=== PATIENT | female | born 1930 | race Caucasian/White ===

== ENCOUNTER 2019-02-03 23:47 | Inpatient (IN) | payer MEDICARE ==
[~2019-02-03] VITALS: Ht 152.4 cm; Wt 49.9 kg
--- NOTE | 2019-02-04 | NUR ---
PT BIBS. C/O "MY MOTHER NEEDS A PSYCH EVALUATION. MORE AGGRESSIVE" -SOB NOTED. PT VSS AT THIS TIME
[2019-02-04 00:31] LABS: BASOPHILS # (AUTO) 0.1 /CMM (0.0-0.2); BASOPHILS % (AUTO) 0.8 % (0.0-2.0); EOSINOPHILS % (AUTO) 0.6 % (0.0-6.0); HEMATOCRIT 35 % (33-45); HEMOGLOBIN 11.5 g/dL (11.5-14.8); LYMPHOCYTES % (AUTO) 14.5 % (20.0-44.0); MEAN CORPUSCULAR HGB CONC 33 g/dl (31.0-36.0); MEAN CORPUSCULAR VOLUME 81 fL (82-100); MONOCYTES # (AUTO) 0.5 /CMM (0.1-1.30); MONOCYTES % (AUTO) 6.4 % (2.0-12.0); NEUTROPHILS # (AUTO) 5.5 /CMM (1.8-8.9); NEUTROPHILS % (AUTO) 77.7 % (43.0-81.0); PLATELET COUNT (AUTO) 385 /CMM (150-450); RED BLOOD CELL COUNT(AUTO) 4.33 MIL/uL (4.0-5.2); WHITE BLOOD COUNT (AUTO) 7.1 K/uL (4.3-11.0)
[2019-02-04 00:50] LABS: CALCIUM, SERUM 9.5 mg/dL (8.5-10.1); CARBON DIOXIDE 22 mmol/L (21-32); CHLORIDE 99 mmol/L (98-107); CREATININE 1.2 mg/dL (0.6-1.3); GLUCOSE 89 mg/dL (74-106); POTASSIUM 3.9 mmol/L (3.5-5.1); SODIUM SERUM 138 mmol/L (136-145); UREA NITROGEN, BLOOD 32 mg/dL (7-18)
[2019-02-04 00:55] LABS: ALANINE AMINOTRANSFERASE 16 U/L (12-78); ALBUMIN 4.3 g/dL (3.4-5.0); ALCOHOL, BLOOD < 3 mg/dL (0-0); ALKALINE PHOSPHATASE 155 U/L (46-116); ASPARTATE AMINOTRANSFERASE 16 U/L (15-37); BILIRUBIN,DIRECT 0.1 mg/dL (0.0-0.2); BILIRUBIN,TOTAL 0.4 mg/dL (0.2-1.0); TOTAL PROTEIN, SERUM 8.1 g/dL (6.4-8.2)
[2019-02-04 00:57] LABS: ACETAMINOPHEN 0 ug/ml (10-30); SALICYLATE 2.6 mg/dL (2.8-20.0)
--- NOTE | 2019-02-04 01:41 | NUR ---
URINE COLLECTED, CALLED LAB FOR CONTINUOUS DRIER OPERATOR
[2019-02-04 01:59] LABS: APPEARANCE,URINE CLEAR (CLEAR); BILIRUBIN,URINE NEGATIVE (NEGATIVE); BLOOD, URINE NEGATIVE Ery/uL (NEGATIVE); COLOR,URINE YELLOW (YELLOW); KETONES,URINE 1+ (NEGATIVE); LEUKOCYTE ESTERASE ,URINE NEGATIVE (NEGATIVE); NITRITE, URINE NEGATIVE (NEGATIVE); PH,URINE 5.5 (5.0-8.0); PROTEIN,URINE TRACE mg/dl (NEGATIVE); UGLUCOSE NEGATIVE (NEGATIVE); UROBILINOGEN,URINE 0.2 EU/dL (0.2)
[2019-02-04 02:13] LABS: BACTERIA,URINE None seen /HPF (None Seen); RBC,URINE 0-2 /HPF (0-2); SQUAMOUS EPITHELIAL CELL,UR Few /HPF (None Seen); WBC,URINE 0-2 /HPF (0-3)
[2019-02-04] MEDS ORDERED: AMLO5TAB9 PO (04:14)
[2019-02-04] MEDS ORDERED: DULO20CA PO (04:14)
[2019-02-04] MEDS ORDERED: PANT40TA2 PO (04:19)
[2019-02-04] MEDS ORDERED: DIAZ5TAB4 PO (04:19)
[2019-02-04] MEDS ORDERED: MAG HYDROX/AL HYDROX/SIMETH 30 ML UDC PO PRN (05:00)
[2019-02-04] MEDS ORDERED: MAGNESIUM HYDROXIDE 30 ML UDC PO PRN (05:00)
[2019-02-04] MEDS ORDERED: LORAZEPAM 0.5 MG TABLET PO PRN (05:00)
[2019-02-04] MEDS ORDERED: BLOOD SUGAR DIAGNOSTIC 1 EACH STRIP IN ONE (05:30)
--- NOTE | 2019-02-04 05:53 | NUR ---
GPS REPLENISHMENT BUYER NOTES: ADMITTED AN 88YO FEMALE FROM HOME, BROUGHT INTO [facility] ER BY THE SON DUE TO INCREASINGLY BECOMING AGGRESSIVE AT HOME. PATIENT THEN PLACED ON 5150 HOLD. PER HOLD, PATIENT WAS HAVING DECREASED MEMORY, INCREASINGLY AGGRESSIVE BEHAVIOR,HITTING HER CAREGIVERS, HAVING INCREASED PARANOIA- THUS THIS ADMISSION. PATIENT WILL BE UNDER THE CARE OF DR. WEAVER AND DR. STEPHANIE MASTERS FOR PSYCH AND MEDICAL RESPECTIVELY. UPON FACE TO FACE ASSESSMENT, PATIENT PRESENTS ALERT AND ORIENTED X1, APPEARS VERY CONFUSED. DISORGANIZED, RESPONDS IN A VERY SARCASTIC WAY WHEN ASKED. SHE EXPRESSED ANGER FOR BEING HERE. REALITY ORIENTATION DONE. BELONGINGS AND CONTRABAND CHECKED. Q15 MIN CHECKS INITIATED. CHANGED PATIENT TO CLEAN GOWN. SKIN AND BODY ASSESSMENT DONE. PICTURES TAKEN AND PLACED IN THE CHART. SAFETY AND FALL PRECAUTIONS OBSERVED. INFORMED PATIENT REGARDING CALL LIGHT USE AND TO ASK FOR HELP ANYTIME. WILL FOLLOW UP MEDICAL DOCTOR FOR MED RECON. WILL CONTINUE TO MONITOR PATIENT FOR MOOD, SAFETY AND BEHAVIOR.
[2019-02-04] MEDS: ACETAMINOPHEN 325 MG TABLET PO PRN ×2 (06:40→21:14)
[2019-02-04 08:00] VITALS: BP 162/81
[2019-02-04] MEDS: hydrALAZINE HCL 25 MG TABLET PO PRN (11:34)
--- NOTE | 2019-02-04 12:35 | NUR ---
SW attempted to contact pt's son, Missael Morocho [[phone]] but no answer; SW left voicemail and will attempt to contact next of kin at a later time.
--- NOTE | 2019-02-04 12:35 | NUR ---
Initial discharge plan: Pt would like to return to her home, located at [address] [place] [id number]; [phone], with different in-home caregivers. Pt is also open living with her brother Nikolas Benton or daughter in law Isidra. Pt is not interested in assisted living placement. SHAHNAZ will plan to discuss placement options with pt, pt family, and MD for discharge planning. SHAHNAZ will continue to work on a safe and proper discharge plan for pt.
--- NOTE | 2019-02-04 15:31 | NUR ---
Group Note: Pt attended group therapy on 02/04/19 at 2:30pm discussing the topic of anger management for when they are in the hospital and for once they are discharged. S: Pt stated, When I get angry I just blow up. I know I should just remove myself from the situation but it is not easy, it is hard, but I want to do better. I want to practice doing better and removing myself from the situation. O: Pt was present during the group session and was engaged. Pt appeared to be in a euthymic mood and presented with a calm affect. Pt maintained appropriate eye contact and had an appropriate tone of voice. A: Pt expressed that when she gets angry she will practice removing herself from the situation until she calms down. Pt will work on managing her anger by talking it out and staying calm when other people upset her. P: Pt will continue milieu treatment and medication stabilization.
[2019-02-04 16:00] VITALS: BP 149/70
--- NOTE | 2019-02-04 16:31 | NUR ---
SHAHNAZ spoke with Missael Morocho [[phone]], pts son, who is in agreement of having pt return to her home with in-home supportive services. Son is already working with [facility] to secure in-home caregivers for when pt is discharged home.
[2019-02-04 20:00] VITALS: BP 148/86
[2019-02-04] MEDS ORDERED: QUETIAPINE FUMARATE 25 MG TABLET PO SCH (22:00)
[2019-02-05] MEDS: ZOLPIDEM TARTRATE 5 MG TABLET PO PRN ×2 (01:47→21:55)
[2019-02-05] MEDS: hydrALAZINE HCL 25 MG TABLET PO PRN (07:38)
[2019-02-05] MEDS: ACETAMINOPHEN 325 MG TABLET PO PRN (07:38)
[2019-02-05 08:00] VITALS: BP 168/98
[2019-02-05] MEDS ORDERED: DULOXETINE HCL 30 MG CAPSULE.DR PO SCH (09:00)
[2019-02-05] MEDS: PANTOPRAZOLE 40 MG TABLET.DR PO SCH (09:06)
[2019-02-05] MEDS: AMLODIPINE BESYLATE 5 MG TABLET PO SCH (09:06)
--- NOTE | 2019-02-05 11:17 | NUR ---
Patti ([phone]), registered nurse advocate, called the SW and stated that the pts son is highly anxious and is considering having the pt transferred to [facility] and that he is uncertain about the treatment that she is receiving. She stated that the pts son is unsure of how to proceed and needs information about the pts hospitalization.
--- NOTE | 2019-02-05 11:19 | NUR ---
SHAHNAZ called Missael Morocho ([phone]), pts son, and left him a voicemail stating that the psychiatrist has been trying to call him to discuss the pts case.
[2019-02-05] MEDS ORDERED: MORPHINE SULFATE INJ 2 MG/ML DISP.SYRIN IV PRN (11:30)
[2019-02-05] MEDS ORDERED: diphenhydrAMINE HCL ELIX 25 MG/10 ML UDC PO PRN (11:30)
--- NOTE | 2019-02-05 14:40 | NUR ---
SHAHNAZ received a call from the pts brother, Nikolas Benton ([phone]), and he was informed that he cannot visit the unit outside of visiting hours due to safety precautions. He stated that he wanted to know who placed the pt on a hold and when she was going to be released. SHAHNAZ stated that the MD spoke to the pts son regarding those details and that he may receive that information from the son.
[2019-02-05 16:00] VITALS: BP 146/85
--- NOTE | 2019-02-05 18:51 | NUR ---
GPS/RN-NOTES PATIENT X3 PCS. OF HEARING AID WAS KEPT IN THE PATIENT'S ( MEDICATION CASSETTE ). WILL ENDORSE TO INCOMING NURSE FOR CONTINUITY OF CARE.
--- NOTE | 2019-02-05 20:00 | NUR ---
GPS-RN PATIENT NOTED WITH BRUISE ON HER RIGHT WRIST, IN PURPLE DISCOLORATION. SKIN INTACT. PHOTO TAKEN AND PLACED IN CHART. WHEN PATIENT ASKED WHAT HAPPENED? PT. STATED "I DON'T KNOW IT JUST POPPED OUT TODAY" PATIENT DENIES PAIN OR DISCOMFORT. HANDLED GENTLY DURING CARE. WILL CONTINUE TO MONITOR FOR FURTHER CHANGES EVERY SHIFT.
[2019-02-05 20:55] VITALS: BP 159/86
[2019-02-05] MEDS: QUETIAPINE FUMARATE 25 MG TABLET PO SCH (21:10)
--- NOTE | 2019-02-06 01:00 | NUR ---
GPS-RN S/P FALL, BED ALARM WENT OFF IMMEDIATELY WENT TO PATIENT'S ROOM AND FOUND PT. IN SITTING POSITION BOTH ARMS SUPPORTING HER UPPER BODY. PER PATIENT SHE BUMPED HER HEAD. HEAD TO TOE ASSESSMENT DONE NOTED WITH BUMPED ON RIGHT TEMPORAL AREA AND C/O PAIN ON RIGHT ARM 11/25. PAIN MEDS GIVEN. VITAL SIGNS BP 167/98, R20, PULSE 101, T97.8 O2 SAT @97%. 0103 - PAGED [employer] AND DR. STEPHANIE MASTERS NOTIFIED OF THE INCIDENT WITH NEW ORDERS TO DO CT SCAN OF THE HEAD WITHOUT CONTRAST, RIGHT SHOULDER X-RAY COMPLETE ORDERS NOTED AND CARRIED OUT. ASKED PATIENT WHAT HAPPENED? PATIENT STATED "I WAS ABOUT TO GET UP TO USE THE BATHROOM" RANGE OF MOTION WITHIN NORMAL LIMITS ABLE TO EXTEND AND FLEX UPPER AND LOWER EXTREMITIES EXCEPT SHE HAS PAIN ON THE RIGHT ARM WHILE RAISING HER RIGHT ARM. NO LOC, NO DIZZINESS, NO BLURRING OF VISION, NO HEADACHE PRIOR TO FALL. PATIENT INSTRUCTED TO USE CALL LOYA WHEN ASSISTANCE IS NEEDED. SAFETY PRECAUTIONS IN PLACE. WILL CONTINUE TO MONITOR Q15MIN ROUNDS FOR SAFETY AND BEHAVIOR. NURSING SUPERVISOR OF INSTRUCTION NOTIFIED. WILL NOTIFY FAMILY IN THE MORNING REGARDING THE INCIDENT. Addendum: 02/06/19 at 0356 by JANICE ABBASI RN ICE PACKED APPLIED TO RIGHT SHOULDER AND RIGHT SIDE OF THE HEAD.
[2019-02-06 01:02] VITALS: BP 167/98
[2019-02-06] MEDS: ACETAMINOPHEN 325 MG TABLET PO PRN ×2 (01:20→08:22)
[2019-02-06] MEDS: hydrALAZINE HCL 25 MG TABLET PO PRN (01:31)
--- NOTE | 2019-02-06 02:56 | NUR ---
GPS-RN 0256 - PAGED [facility] DR. STEPHANIE MASTERS REGARDING XR RIGHT SHOULDER, AWAITING CALL BACK FROM . [phone] - FOLLOWED UP CALL MADE TO [facility] DR. MASTERS RE: XR RIGHT SHOULDER RESULT NO CALL BACK YET.
--- NOTE | 2019-02-06 03:36 | NUR ---
GPS-RN RECEIVED A CALL FROM DR. SANCHEZ INFORMED HIM OF X-RAY AND CT OF THE HEAD FINDINGS. DR. SANCHEZ ORDERED RIGHT ARM SHOULDER SLING, ORTHO CONSULT IN AM WITH ON-CALL DOCTOR AND NORCO 5/325MG PO Q6HRS PRN. ALL ORDERS NOTED AND CARRIED OUT.
[2019-02-06] MEDS: HYDROCODONE/APAP 5/325MG 1 EACH TABLET PO PRN ×2 (03:50→11:02)
--- NOTE | 2019-02-06 06:35 | NUR ---
GPS-RN SPOKE TO PT'S SON EMILIA NIETO AND NOTIFIED REGARDING S/P FALL INCIDENT. Addendum: 02/06/19 at 0647 by SOURAV PETERSEN RN PER SON PATIENT HAS HAD HISTORY OF FALL 4 WEEKS AGO, AND THE SECOND TIME HAPPENED 2 WEEKS AGO AND THAT, SHE COMPLAINED OF PAIN ON HER RIGHT ARM. HE ALSO STATED PATIENT HAD AN X-RAY ON HER RIGHT ARM AT [facility].
[2019-02-06 06:48] VITALS: BP 157/86
[2019-02-06 07:53] LABS: CREATININE 0.9 mg/dL (0.6-1.3); POTASSIUM 3.4 mmol/L (3.5-5.1)
[2019-02-06 07:59] LABS: BASOPHILS % (AUTO) 0.6 % (0.0-2.0); EOSINOPHILS % (AUTO) 1.1 % (0.0-6.0); HEMATOCRIT 34 % (33-45); HEMOGLOBIN 11.1 g/dL (11.5-14.8); LYMPHOCYTES # (AUTO) 1.4 /CMM (0.8-4.8); LYMPHOCYTES % (AUTO) 17.9 % (20.0-44.0); MEAN CORPUSCULAR HGB CONC 33 g/dl (31.0-36.0); MEAN CORPUSCULAR VOLUME 81 fL (82-100); MONOCYTES # (AUTO) 0.7 /CMM (0.1-1.30); MONOCYTES % (AUTO) 8.5 % (2.0-12.0); NEUTROPHILS # (AUTO) 5.6 /CMM (1.8-8.9); NEUTROPHILS % (AUTO) 71.9 % (43.0-81.0); PLATELET COUNT (AUTO) 358 /CMM (150-450); WHITE BLOOD COUNT (AUTO) 7.8 K/uL (4.3-11.0)
[2019-02-06 08:00] VITALS: BP 163/99
[2019-02-06] MEDS: ESCITALOPRAM OXALATE (10 MG) 10 MG TABLET PO SCH (08:22)
[2019-02-06] MEDS: AMLODIPINE BESYLATE 5 MG TABLET PO SCH (08:22)
[2019-02-06] MEDS: PANTOPRAZOLE 40 MG TABLET.DR PO SCH (08:22)
[2019-02-06] MEDS ORDERED: POTASSIUM CHLORIDE 20 MEQ TAB.PRT.SR PO SCH (10:30)
--- NOTE | 2019-02-06 11:03 | NUR ---
GPS/RN-NOTES PATIENT C/O 12/26 RIGHT SHOULDER PAIN. NORCO 5/325MG 1 TAB. P.O GIVEN PRN ORDER. WILL CONT. 1: 1 MONITORING FOR SAFETY AND BEHAVIOR.
--- NOTE | 2019-02-06 12:05 | NUR ---
PSRN-NOTES PATIENT LAYING IN BED SLEEPING EASILY AROUSE,NO ACUTE DISTRESS NOTED. ON 1:1 MONITORING FOR SAFETY AND BEHAVIOR.
[2019-02-06] MEDS: TRAMADOL HCL 50 MG TABLET PO SCH ×2 (14:53→22:15)
[2019-02-06 16:00] VITALS: BP 140/91
--- NOTE | 2019-02-06 16:54 | NUR ---
GPS/RN-NOTES DR. CORREA MADE AWARE OF THE CT OF THE RIGHT SHOULDER RESULTS WITH NNO AT THIS TIME. STATED" CONTINUE ON LETTING THE PATIENT USE THE SLING ON THE SHOULDER".
--- NOTE | 2019-02-06 17:13 | NUR ---
GPS/RN-NOTES PLACE CALL TO DR. BLANCHARD AT [phone] ( ORTHO) VERBALIZED HE WILL COME SEE THE PATIENT IN THE MORNING.
[2019-02-06 20:19] VITALS: BP 159/98
[2019-02-06] MEDS: QUETIAPINE FUMARATE 25 MG TABLET PO SCH (21:37)
[2019-02-07] MEDS: ZOLPIDEM TARTRATE 5 MG TABLET PO PRN (00:36)
[2019-02-07] MEDS: HYDROCODONE/APAP 5/325MG 1 EACH TABLET PO PRN ×3 (02:42→19:38)
[2019-02-07] MEDS: TRAMADOL HCL 50 MG TABLET PO SCH ×3 (06:59→21:42)
--- NOTE | 2019-02-07 07:30 | NUR ---
PT RECEIVED RESTING COMFORTABLY IN BED. NO S/S OR C/O PAIN OR DISTRESS NOTED. SIDE RAILS UP X2, WILL CONTINUE PLAN OF CARE.
[2019-02-07 08:00] VITALS: BP 194/95
[2019-02-07] MEDS: ESCITALOPRAM OXALATE (10 MG) 10 MG TABLET PO SCH (09:00)
[2019-02-07] MEDS: PANTOPRAZOLE 40 MG TABLET.DR PO SCH (09:00)
[2019-02-07] MEDS: AMLODIPINE BESYLATE 5 MG TABLET PO SCH (10:55)
[2019-02-07] MEDS ORDERED: TUBERCULIN,PURIF.PROT.DERIV. 5 TU/0.1 ML VIAL ID ONE (15:30)
[2019-02-07 16:00] VITALS: BP 165/97
--- NOTE | 2019-02-07 16:00 | NUR ---
PT REFUSED SUBQ TB TEST. PT TEACHING PERFORMED TO DISCUSS IMPORTANCE OF PROCEDURE BUT PT CONTINUED TO ADAMANTLY REFUSE. WILL NOTIFY
--- NOTE | 2019-02-07 16:53 | NUR ---
PT REFUSED BLOOD DRAW. PT TEACHING PERFORMED TO EXPLAIN IMPORTANCE OF PROCEDURE BUT PATIENT CONTINUED TO REFUSE. WILL NOTIFY .
--- NOTE | 2019-02-07 20:00 | NUR ---
GPS RN NOTE: PATIENT REFUSED PPD SKIN TEST, SON "BYRON" ALSO REFUSED SKIN TEST FOR HIS MOM AND WANTED A CHEST XRAY INSTEAD PER REQUIREMENT OF THE ACCEPTING PLACE. NOTIFIED EPIC EXCHANGE AND AWAITING FOR THE DOCTOR CALL BACK
--- NOTE | 2019-02-07 20:15 | NUR ---
GPS RN NOTE: RECEIVED NEW ORDER FROM DR. STEPHANIE SANCHEZ OF CHEST XRAY IN AM NOTED AND CARRIED OUT.
[2019-02-07 20:19] VITALS: BP 145/99
[2019-02-07] MEDS: QUETIAPINE FUMARATE 25 MG TABLET PO SCH (21:39)
[2019-02-08] MEDS: HYDROCODONE/APAP 5/325MG 1 EACH TABLET PO PRN ×3 (05:21→17:30)
--- NOTE | 2019-02-08 05:42 | NUR ---
GPS RN NOTE: WEEKLY PICTURES DONE, BUT PATIENT REFUSED TO SHOW HER BACK AREA. EXPLAINED THE RISK AND BENEFITS AND PATIENT STILL REFUSED. WILL ENDORSE TO THE NEXT SHIFT.
[2019-02-08] MEDS: TRAMADOL HCL 50 MG TABLET PO SCH ×3 (06:30→21:27)
[2019-02-08 08:00] VITALS: BP 160/90
[2019-02-08] MEDS: ESCITALOPRAM OXALATE (10 MG) 10 MG TABLET PO SCH (08:30)
[2019-02-08] MEDS: PANTOPRAZOLE 40 MG TABLET.DR PO SCH (08:32)
[2019-02-08] MEDS: AMLODIPINE BESYLATE 5 MG TABLET PO SCH (08:33)
--- NOTE | 2019-02-08 09:44 | NUR ---
RN NOTE: PATIENT C/O 01/26 SHOULDER PAIN, PRN NORCO GIVEN
--- NOTE | 2019-02-08 13:04 | NUR ---
SHAHNAZ called the pts son, Missael ([phone]) to return his voicemail and he stated that he would like the pt to be referred to [facility] in [place]. SHAHNAZ stated that she would facilitate the discharge with the facility.
--- NOTE | 2019-02-08 14:52 | NUR ---
Group Note: SW encouraged pt to attend group therapy on 02/08/19 at 1:30pm discussing support systems when they are in the hospital and for once they are discharged but the pt was unable to attend.
[2019-02-08 16:00] VITALS: BP 134/97
--- NOTE | 2019-02-08 16:07 | NUR ---
SHAHNAZ faxed referral to [facility] [[address] [place] [address]; [phone]] saturnino Eden, seo coordinator, fax number [phone].
[2019-02-08 19:43] VITALS: BP 137/87
[2019-02-08] MEDS: LORAZEPAM 0.5 MG TABLET PO PRN (19:54)
[2019-02-08] MEDS: QUETIAPINE FUMARATE 25 MG TABLET PO SCH (21:26)
[2019-02-08] MEDS: ZOLPIDEM TARTRATE 5 MG TABLET PO PRN (21:26)
[2019-02-09] MEDS: TRAMADOL HCL 50 MG TABLET PO SCH ×3 (06:30→22:26)
--- NOTE | 2019-02-09 06:37 | NUR ---
PATIENT REFUSED 6 AM TRAMADOL PATIENT STATED, I DON'T NEED ANY MEDICATIONS I AM FINE
[2019-02-09 08:00] VITALS: BP 159/99
--- NOTE | 2019-02-09 09:00 | NUR ---
[facility] ASSESSMENT: Bell RN and [employer], memory customer care consultant came on this present day to assess pt for possible admission. Per Bell, she would let SW know later today if pt will be accepted.
[2019-02-09] MEDS: AMLODIPINE BESYLATE 5 MG TABLET PO SCH (09:02)
[2019-02-09] MEDS: PANTOPRAZOLE 40 MG TABLET.DR PO SCH (09:02)
[2019-02-09] MEDS: ESCITALOPRAM OXALATE (10 MG) 10 MG TABLET PO SCH (09:02)
--- NOTE | 2019-02-09 12:53 | NUR ---
SW contacted [facility] [[address] [place] [address]; [phone]] and left a voicemail for Roro, admission coordinator requesting update on pts referral status.
--- NOTE | 2019-02-09 13:44 | NUR ---
SW received a call from Katiana, servicenow administrator developer at [facility] [[address] [place] [address]; [phone]] stating that pt has been accepted to the facility and is waiting for pts son to arrange pts furniture.
--- NOTE | 2019-02-09 13:47 | NUR ---
SW called the pts son, Missael ([phone]) to inform him [facility] has accepted pt and to inform him that psychiatrist has discharge order for tomorrow Friday02/10/19. Son stated that he is currently working on getting pts furniture transferred to [facility] and stated that he might need an extra day to arrange the move. SHAHNAZ stated that she would call him tomorrow morning to confirm discharge.
[2019-02-09 15:50] VITALS: BP 154/69
--- NOTE | 2019-02-09 16:00 | NUR ---
RN NOTE: PATIENT REFUSED 1430 TRAMADOL AND STATED, "NO THANKS, IM DOING OK"
[2019-02-09] MEDS: QUETIAPINE FUMARATE 25 MG TABLET PO SCH (19:56)
[2019-02-09] MEDS: LORAZEPAM 0.5 MG TABLET PO PRN (19:56)
[2019-02-09 20:17] VITALS: BP 160/60
[2019-02-09] MEDS: DONEPEZIL 5 MG TABLET PO SCH (22:00)
[2019-02-09] MEDS: ZOLPIDEM TARTRATE 5 MG TABLET PO PRN (23:00)
[2019-02-10] MEDS: ZOLPIDEM TARTRATE 5 MG TABLET PO PRN (05:41)
[2019-02-10] MEDS: TRAMADOL HCL 50 MG TABLET PO SCH ×3 (06:30→21:31)
--- NOTE | 2019-02-10 07:00 | NUR ---
RN NOTE: PATIENT REFUSED @ 630 AM TRAMADOL AND STATED, "I DON,T HAVE A PAIN"
[2019-02-10 08:00] VITALS: BP 167/76
--- NOTE | 2019-02-10 08:42 | NUR ---
SW called the pts son, Missael ([phone]) to confirm discharge on this present day. Son stated that "most likely" pts room at [facility] will be ready on . Son also requested SW provide him with pts current diagnosis. SW provided him with diagnosis of Unspecified Depression and rule out of Dementia. Pt was upset with diagnosis and stated that he will not approve transfer to another facility until he had clear answers regarding pts Dementia diagnosis. Son questioned why Dementia was ruled out and SW informed him that she was unable to discuss pts diagnosis with him as it was out of her scope of practice. SHAHNAZ informed him that she would have psychiatrist Dr. Luna call him on this present day to discuss pts diagnosis.
[2019-02-10] MEDS: ESCITALOPRAM OXALATE (10 MG) 10 MG TABLET PO SCH (08:47)
[2019-02-10] MEDS: AMLODIPINE BESYLATE 5 MG TABLET PO SCH (08:48)
[2019-02-10] MEDS: PANTOPRAZOLE 40 MG TABLET.DR PO SCH (08:49)
--- NOTE | 2019-02-10 10:23 | NUR ---
PC HEARING NOTIFICATION SHAHNAZ called the pts son, Missael ([phone]) and left a voicemail informing him SW will ask psychiatrist Dr. Luna to call him to discuss his concern with pts diagnosis and also to inform him that pt has a scheduled PC hearing on this present day.
[2019-02-10] MEDS: HYDROCODONE/APAP 5/325MG 1 EACH TABLET PO PRN (10:40)
--- NOTE | 2019-02-10 10:40 | NUR ---
PT C/O PAIN TO RT SHOULDER 01/26 MEDICATED WITH ONE NORCO PRN
--- NOTE | 2019-02-10 10:59 | NUR ---
SW received a call from pts son, Missael ([phone]) stating that he opposes for pt to have a hearing without legal representation on his behalf. SW explained that he cannot oppose to a hearing as it is an LPS requirement and since he is not pts LPS conservator he is unable to make such decision. SW explained that he is able to attend only is pt allows for him to attend and stated that if pt refuses for him to attend he may not attend the hearing as it is her right. SW also informed him that pt has requested not to speak with him and that there is a myla in the nurses station. Son was upset and stated that he is a religious education coordinator and will call [place] [address] to make sure he is granted permission to attend.
--- NOTE | 2019-02-10 12:09 | NUR ---
SHAHNAZ contacted pts son, Missael ([phone]) and left a voicemail informing him that the PC HEARING will be held between [phone]. SHAHNAZ also informed him that Psychiatrist Dr. Luna attempted to call him twice to discuss pts diagnoses and also to discuss pts discharge on this present day.
--- NOTE | 2019-02-10 12:45 | NUR ---
SW received a voicemail from pts son, Missael ([phone]) requesting pt be discharged tomorrow morning to [facility].
--- NOTE | 2019-02-10 13:28 | NUR ---
SHAHNAZ and psychiatrist Dr. Luna spoke with pts son, Missael ([phone]) who agreed to discharging pt tomorrow 02/11/[address] [facility]. Son also stated he will not be attending the PC HEARING as he stated "there is no point in me attending as she is being discharged tomorrow."
[2019-02-10 16:00] VITALS: BP 162/89
[2019-02-10] MEDS: hydrALAZINE HCL 25 MG TABLET PO PRN (16:19)
--- NOTE | 2019-02-10 16:29 | NUR ---
PT B/P 162/89 PRN HYDRALAZINE GIVEN WILL RECHECK B/P
[2019-02-10 19:59] VITALS: BP 149/88
[2019-02-10] MEDS: QUETIAPINE FUMARATE 25 MG TABLET PO SCH (21:12)
[2019-02-10] MEDS: DONEPEZIL 5 MG TABLET PO SCH (21:12)
[2019-02-11] MEDS: HYDROCODONE/APAP 5/325MG 1 EACH TABLET PO PRN (03:20)
[2019-02-11] MEDS: TRAMADOL HCL 50 MG TABLET PO SCH (06:49)
[2019-02-11 08:00] VITALS: BP 161/89
[2019-02-11] MEDS: ESCITALOPRAM OXALATE (10 MG) 10 MG TABLET PO SCH (08:56)
[2019-02-11] MEDS: PANTOPRAZOLE 40 MG TABLET.DR PO SCH (08:56)
[2019-02-11 08:57] VITALS: BP 161/89
[2019-02-11] MEDS: AMLODIPINE BESYLATE 5 MG TABLET PO SCH (08:57)
--- NOTE | 2019-02-11 10:30 | NUR ---
DISCHARGE NOTE: Pt will be discharged at 12:00pm to [facility] [id number] . Pts son Missael [phone] will be picking pt up and transporting to the facility. Pts mood is euthymic with congruent affect. Pt denied visual/auditory hallucinations and denied suicidal/homicidal ideation. Pt will be under the care of Psychiatrist: Dr. Enzo Skaggs Address: [address] [place] [address] and Envelope Sealer: Dr. Ruben Goodman Address: [address] [facility] [address] [address] . The multidisciplinary exit care form was done, printed, signed, and given to the patient.
--- NOTE | 2019-02-11 12:00 | NUR ---
GPS/RN-NOTES PATIENT WAS DISCHARGE TO [facility] TODAY. DR. WEAVER AND DON CURIEL AWARE AND AGREED OF PATIENT DISCHARGE.PATIENT LEFT THE UNIT IN STABLE CONDITION ALERT ORIENTED X2 AMBULATORY WITH ASSIST. PATIENT DID NOT VERBALIZED SI/HI ,DENIES VISUAL/AUDITORY HALLUCINATIONS AT THE TIME OF DISCHARGE.PATIENT WAS SEO ENGINEER BY SON EMILIA VIA PRIVATE CAR. ALL BELONGINGS WAS GIVEN TO THE PATIENT INCLUDING X3 PCS. HEARING AID AND ALSO RX AND DISCHARGE PAPERS .PATIENT WAS WHEELED BY ONE EMT P STAFF IN THE LOBBY FOR SAFETY.
== END 2019-02-11 12:00 | DRG 881 ==
LOC: ER 23:49 → GPS 02-04 04:21
PROVIDERS: ADMIT Psychiatry & Neurology Psychiatry; ATTEND Internal Medicine
DX: F32.9 Major depressive disorder, single episode, unspecified (principal); M80.011A Age-related osteoporosis with current pathological fracture, right shoulder, initial encounter for fracture; F02.81 Dementia in other diseases classified elsewhere, unspecified severity, with behavioral disturbance; I10 Essential (primary) hypertension; E78.5 Hyperlipidemia, unspecified; F41.9 Anxiety disorder, unspecified; Z96.649 Presence of unspecified artificial hip joint; Z73.6 Limitation of activities due to disability; S46.011A Strain of muscle(s) and tendon(s) of the rotator cuff of right shoulder, initial encounter; W19.XXXA Unspecified fall, initial encounter; Y93.9 Activity, unspecified; Y92.230 Patient room in hospital as the place of occurrence of the external cause; G30.9 Alzheimer's disease, unspecified; M19.90 Unspecified osteoarthritis, unspecified site
CPT/HCPCS: 36415; 70450-TC; 71045-TC; 73030-TC; 73200-TC; 80048-TC; 80061-TC; 80076-TC; 80305; 81000-TC; 82962-TC; 84443-TC; 85025-TC; 86480; 86580-TC; 87081-TC; 97116-TC; 97530-TC; G0480; J2270